=== PATIENT | female | born 1985 | race Caucasian/White ===

== ENCOUNTER 2017-04-23 10:31 | Outpatient (CLI) | payer BC ==
[~2017-04-23] VITALS: Ht 162.6 cm; Wt 85.9 kg
[~2017-04-23 10:31] MED LIST: BIRTH CONTROL PILL; PRENATAL1 TA1 PO
[2017-04-23 10:51] VITALS: BP 136/80; PULSE 79; TEMP 97.8
[2017-04-23] MEDS ORDERED: PRENATAL1 TA7 PO (11:02)
[2017-04-23 11:15] VITALS: BP 136/80; PULSE 79; TEMP 97.8
== END 2017-04-23 12:10 | disposition home or self-care (01) ==
LOC: LDRO 10:31
DX: Z34.83 Encounter for supervision of other normal pregnancy, third trimester (principal); Z3A.39 39 weeks gestation of pregnancy

== ENCOUNTER 2017-04-24 16:33 | Outpatient (CLI) | payer BC ==
[~2017-04-24] VITALS: Ht 162.6 cm; Wt 85.9 kg
[~2017-04-24 16:33] MED LIST changes: +PRENATAL1 TA7 PO
[2017-04-24 16:48] VITALS: BP 131/79; PULSE 76; TEMP 98.2
== END 2017-04-24 17:35 | disposition home or self-care (01) ==
LOC: LDRO 16:33
DX: O42.92 Full-term premature rupture of membranes, unspecified as to length of time between rupture and onset of labor (principal); Z3A.39 39 weeks gestation of pregnancy

== ENCOUNTER 2017-04-28 08:45 | Inpatient (IN) | payer BC ==
[2017-04-28] VITALS (24 sets, daily range): BP systolic 118–157; BP diastolic 60–102; PULSE 67–107; TEMP 97.3–98.3
[~2017-04-28] VITALS: Ht 162.6 cm; Wt 85.9 kg
[2017-04-28 09:48] LABS: BASO % 0.3 % (0.0-2.0); EOS # 0.1 (0.0-0.7); EOS % 1.4 % (0-4.0); GRAN # 6.7 (1.4-6.5); GRAN % 74.2 % (42.2-75.2); HEMOGLOBIN 12.2 g/dl (12.5-16.0); LYMPH # 1.5 (1.2-3.4); LYMPH % 16.4 % (20.0-51.0); MEAN CELL VOLUME 93 fl (80.0-100.0); MEAN CORPUSCULAR HEMOGLOBIN 33 pg (27.0-31.0); MEAN CORPUSCULAR HGB CONC 35 g/dl (33.0-37.0); MONO # 0.7 (0.1-0.6); MONO % 7.3 % (1.7-9.3); PLATELET COUNT 179 K/mm3 (130-400); RED BLOOD COUNT 3.72 M/mm3 (4.10-5.30); REDCELL DISTRIBUTION WIDTH-CV 13.1 % (11.5-14.5)
[2017-04-28 09:51] LABS: HEMATOCRIT 34.5 % (37.0-47.0)
[2017-04-29 02:00] VITALS: BP 127/71; PULSE 68; TEMP 97.9
[2017-04-29 07:00] VITALS: BP 124/64; PULSE 60; TEMP 98
[2017-04-29] MEDS ORDERED: MOTRIN 800800 MG/TAB PO (08:14)
[2017-04-29] MEDS ORDERED: PERCOCET 325 MG1 TA2 PO (08:15)
[2017-04-29 12:30] VITALS: BP 125/65; PULSE 66; TEMP 98
== END 2017-04-29 15:30 | disposition home or self-care (01) | DRG 775 ==
LOC: LDRO 08:45 → LDR 08:52 → OB 16:30
PROVIDERS: Obstetrics & Gynecology
PROC: 10E0XZZ Delivery of Products of Conception, External Approach (ICD-10-PCS; principal; 2017-04-28)
PROC: 0KQM0ZZ Repair Perineum Muscle, Open Approach (ICD-10-PCS; 2017-04-28)
DX: O48.0 Post-term pregnancy (principal); O70.1 Second degree perineal laceration during delivery; O13.3 Gestational [pregnancy-induced] hypertension without significant proteinuria, third trimester; Z3A.40 40 weeks gestation of pregnancy; Z37.0 Single live birth
CPT/HCPCS: J2590; J7120

== ENCOUNTER 2017-06-18 09:28 | Inpatient (IN) | payer BC ==
[~2017-06-18] VITALS: Ht 162.6 cm; Wt 67.9 kg
[~2017-06-18 09:28] MED LIST changes: +MOTRIN 800800 MG/TAB PO; +PERCOCET 325 MG1 TA2 PO
[2017-06-18] MEDS ORDERED: PREDNISONE10 MG PO (10:01)
[2017-06-18] MEDS ORDERED: HUMIRA40 MG/0.1 IM (10:02)
[2017-06-18 10:18] LABS: MEAN CELL VOLUME 90 fl (80.0-100.0); MEAN CORPUSCULAR HGB CONC 32 g/dl (33.0-37.0); MEAN PLATELET VOLUME 8.9 fl (7.4-10.4); PLATELET COUNT 339 K/mm3 (130-400); RED BLOOD COUNT 3.46 M/mm3 (4.10-5.30); REDCELL DISTRIBUTION WIDTH-CV 13.2 % (11.5-14.5); WHITE BLOOD COUNT 7.5 K/mm3 (4.8-10.8)
[2017-06-18 10:20] LABS: ADD PATHOLOGY DIFF REVIEW NO; HEMOGLOBIN 9.8 g/dl (12.5-16.0); MEAN CORPUSCULAR HEMOGLOBIN 28 pg (27.0-31.0)
[2017-06-18 10:33] LABS: ADJUSTED CALCIUM 9.6 mg/dL (8.4-10.2); ALBUMIN 3.1 gm/dL (3.5-5.0); BILIRUBIN,TOTAL 0.6 mg/dL (0.0-1.0); CALCIUM 8.9 mg/dL (8.4-10.2); CREATININE, serum 1.11 mg/dL (0.52-1.25); TOTAL PROTEIN 6.5 gm/dL (6.4-8.2)
[2017-06-18 11:40] LABS: BAND 57 % (0-10); EOSINOPHIL 3 % (0-4); NEUTROPHILS 7 % (42.0-75.2); PLATELET ESTIMATE NORMAL (NORMAL); TOTAL CELLS COUNTED 100; TOXIC GRANULATION PRESENT
[2017-06-18 11:44] LABS: ERYTHROCYTE SEDIMENTATION RATE 44 mm/hr (0-20)
[2017-06-18 13:04] LABS: PH 6 (5-8); SQUAMOUS EPITHELIAL 0-2 /hpf; URINE APPEARANCE Clear; URINE BACTERIA Rare /hpf; URINE BILIRUBIN Negative (NEGATIVE); URINE BLOOD Negative (NEGATIVE); URINE COLOR Straw; URINE GLUCOSE Negative (NEGATIVE); URINE KETONE Negative (NEGATIVE); URINE RBC 0-2 /hpf; URINE UROBILINOGEN Negative (NEGATIVE)
[2017-06-18 15:24] VITALS: BP 120/76; PULSE 75; TEMP 99.3
[2017-06-18 15:42] VITALS: BP 120/76; PULSE 67; TEMP 99.3
[2017-06-18 19:59] VITALS: BP 110/68; PULSE 60; TEMP 98.1
[2017-06-18 23:25] VITALS: BP 117/64; PULSE 48; TEMP 97.5
[2017-06-19 04:14] VITALS: BP 121/70; PULSE 54; TEMP 97.6
[2017-06-19 06:36] LABS: MEAN CELL VOLUME 89 fl (80.0-100.0); MEAN CORPUSCULAR HGB CONC 32 g/dl (33.0-37.0); MEAN PLATELET VOLUME 9.3 fl (7.4-10.4); PLATELET COUNT 319 K/mm3 (130-400); RED BLOOD COUNT 3.26 M/mm3 (4.10-5.30); REDCELL DISTRIBUTION WIDTH-CV 13.1 % (11.5-14.5)
[2017-06-19 06:45] LABS: ADD PATHOLOGY DIFF REVIEW NO; HEMATOCRIT 29.1 % (37.0-47.0); HEMOGLOBIN 9.2 g/dl (12.5-16.0); MEAN CORPUSCULAR HEMOGLOBIN 28 pg (27.0-31.0)
[2017-06-19 06:57] LABS: CALCIUM 8.4 mg/dL (8.4-10.2); CREATININE, serum 0.76 mg/dL (0.52-1.25)
[2017-06-19 07:40] LABS: BAND 65 % (0-10); METAMYELOCYTE 1 % (0-0); NEUTROPHILS 27 % (42.0-75.2); OVALOCYTES 1+; PLATELET ESTIMATE INCREASED (NORMAL); TEAR DROP CELLS 1+; TOTAL CELLS COUNTED 100
[2017-06-19 07:52] VITALS: BP 120/70; PULSE 75; TEMP 97.8
[2017-06-19 10:54] VITALS: BP 120/71; PULSE 55; TEMP 97.8
[2017-06-19 20:16] VITALS: BP 119/71; PULSE 55; TEMP 97.8
[2017-06-19 22:56] VITALS: BP 119/66; PULSE 55; TEMP 97.6
[2017-06-20 03:35] VITALS: BP 131/78; PULSE 58; TEMP 98.2
[2017-06-20 07:21] LABS: CALCIUM 9.4 mg/dL (8.4-10.2); CREATININE, serum 0.88 mg/dL (0.52-1.25); POTASSIUM 3.8 mmol/L (3.4-5.0)
[2017-06-20 09:32] VITALS: BP 131/74; PULSE 50; TEMP 98.2
[2017-06-20 15:40] VITALS: BP 126/72; PULSE 54; TEMP 98.5
[2017-06-20 20:50] VITALS: BP 131/74; PULSE 55; TEMP 98.7
[2017-06-20 23:50] VITALS: BP 138/84; PULSE 52; TEMP 97
[2017-06-21] VITALS (10 sets, daily range): BP systolic 113–150; BP diastolic 61–81; PULSE 52–90; TEMP 97.9–98.7
[2017-06-22 02:52] VITALS: BP 134/70; PULSE 56; TEMP 98.1
[2017-06-22 07:33] VITALS: BP 158/89; PULSE 50; TEMP 98.6
[2017-06-22] MEDS ORDERED: ASACOL HD800 MG PO (07:37)
[2017-06-22] MEDS ORDERED: PREDNISONE20 MG PO (07:44)
== END 2017-06-22 10:55 | disposition home or self-care (01) | DRG 387 ==
LOC: COL.ER 09:28 → MEDICAL 14:00 → COL.ER 14:00 → MEDICAL 15:15
PROVIDERS: Family Medicine; Internal Medicine Gastroenterology; Nurse Practitioner; Physician Assistant
PROC: 0DBF8ZX Excision of Right Large Intestine, Via Natural or Artificial Opening Endoscopic, Diagnostic (ICD-10-PCS; 2017-06-21)
PROC: 0DBG8ZX Excision of Left Large Intestine, Via Natural or Artificial Opening Endoscopic, Diagnostic (ICD-10-PCS; 2017-06-21)
PROC: 0DBB8ZX Excision of Ileum, Via Natural or Artificial Opening Endoscopic, Diagnostic (ICD-10-PCS; 2017-06-21)
PROC: 0DBL8ZX Excision of Transverse Colon, Via Natural or Artificial Opening Endoscopic, Diagnostic (ICD-10-PCS; 2017-06-21)
PROC: 0DBP8ZX Excision of Rectum, Via Natural or Artificial Opening Endoscopic, Diagnostic (ICD-10-PCS; principal; 2017-06-21 07:30)
DX: K50.10 Crohn's disease of large intestine without complications (principal); E87.6 Hypokalemia; M79.661 Pain in right lower leg
CPT/HCPCS: 99222-AI; 99231-AI; 99232-AI; 99239; J0360; J1170; J2270; J2405; J2550; J2704; J2765; J2930; J7030; Q9967

== ENCOUNTER → 2018-10-10 | Outpatient (CLI) | payer BC ==
[~2018-10-10] MED LIST changes: +ASACOL HD800 MG PO; +HUMIRA40 MG/0.1 IM; +PREDNISONE10 MG PO; +PREDNISONE20 MG PO
== END ==
LOC: COL.LAB 08:58
DX: K50.10 Crohn's disease of large intestine without complications (principal); Z79.899 Other long term (current) drug therapy

== ENCOUNTER 2018-11-13 09:07 | Inpatient (IN) | payer BC ==
[~2018-11-13] VITALS: Ht 162.6 cm; Wt 65.4 kg
[2018-11-13 09:49] LABS: BASO % 0.3 % (0.0-2.0); EOS % 0.2 % (0-4.0); GRAN # 5.5 (1.4-6.5); GRAN % 60.5 % (42.2-75.2); HEMATOCRIT 38.6 % (37.0-47.0); HEMOGLOBIN 12.9 g/dl (12.5-16.0); LYMPH # 2.8 (1.2-3.4); LYMPH % 30.5 % (20.0-51.0); MEAN CELL VOLUME 91 fl (80.0-100.0); MEAN CORPUSCULAR HEMOGLOBIN 30 pg (27.0-31.0); MEAN CORPUSCULAR HGB CONC 33 g/dl (33.0-37.0); MEAN PLATELET VOLUME 8.6 fl (7.4-10.4); MONO # 0.7 (0.1-0.6); PLATELET COUNT 229 K/mm3 (130-400); RED BLOOD COUNT 4.24 M/mm3 (4.10-5.30); REDCELL DISTRIBUTION WIDTH-CV 12.9 % (11.5-14.5)
[2018-11-13 09:51] LABS: COLLECTION METHOD CLEAN CATCH
[2018-11-13 09:59] LABS: ALBUMIN 3.4 gm/dL (3.5-5.0); BILIRUBIN,TOTAL 0.4 mg/dL (0.0-1.0); C-REACTIVE PROTEIN 5.6 mg/dL (0.0-0.9); CALCIUM 9.1 mg/dL (8.4-10.2); CREATININE, serum 0.86 mg/dL (0.52-1.25); POTASSIUM 3.6 mmol/L (3.4-5.0); TOTAL PROTEIN 6.5 gm/dL (6.4-8.2)
[2018-11-13 10:02] LABS: MUCOUS Present /lpf; PH 6 (5-8); SQUAMOUS EPITHELIAL 20-50 /hpf; URINE APPEARANCE Hazy; URINE BACTERIA Rare /hpf; URINE BILIRUBIN Negative (NEGATIVE); URINE BLOOD Negative (NEGATIVE); URINE COLOR Yellow; URINE GLUCOSE Negative (NEGATIVE); URINE KETONE Negative (NEGATIVE); URINE LEUKOCYTE ESTERASE 1+ (NEGATIVE); URINE NITRATE Negative (NEGATIVE); URINE PROTEIN(semi-quant) 1+ (NEGATIVE); URINE RBC 0-2 /hpf
[2018-11-13] MEDS ORDERED: PREDNISONE10 MG PO (14:27)
[2018-11-13 15:29] LABS: COLLECTION METHOD CLEAN CATCH
[2018-11-13 15:36] LABS: MUCOUS Present /lpf; PH 5 (5-8); SQUAMOUS EPITHELIAL 0-2 /hpf; URINE APPEARANCE Clear; URINE BACTERIA None Seen /hpf; URINE BILIRUBIN Negative (NEGATIVE); URINE BLOOD Negative (NEGATIVE); URINE COLOR Yellow; URINE GLUCOSE Negative (NEGATIVE); URINE KETONE Negative (NEGATIVE); URINE LEUKOCYTE ESTERASE Negative (NEGATIVE); URINE NITRATE Negative (NEGATIVE); URINE PROTEIN(semi-quant) Negative (NEGATIVE); URINE RBC 0-2 /hpf; URINE UROBILINOGEN Negative (NEGATIVE)
[2018-11-13 17:02] VITALS: BP 106/61; PULSE 61; TEMP 98.1
[2018-11-13 19:40] VITALS: BP 121/65; PULSE 70; TEMP 98.1
[2018-11-14] VITALS (11 sets, daily range): BP systolic 88–111; BP diastolic 46–77; PULSE 50–74; TEMP 97.7–98.6
[2018-11-14 07:53] LABS: BASO % 0.2 % (0.0-2.0); GRAN # 10.9 (1.4-6.5); GRAN % 83.4 % (42.2-75.2); HEMATOCRIT 38.1 % (37.0-47.0); HEMOGLOBIN 12.8 g/dl (12.5-16.0); LYMPH # 1.6 (1.2-3.4); LYMPH % 12.4 % (20.0-51.0); MEAN CELL VOLUME 91 fl (80.0-100.0); MEAN CORPUSCULAR HEMOGLOBIN 31 pg (27.0-31.0); MEAN CORPUSCULAR HGB CONC 34 g/dl (33.0-37.0); MEAN PLATELET VOLUME 8.9 fl (7.4-10.4); MONO # 0.4 (0.1-0.6); MONO % 3.1 % (1.7-9.3); PLATELET COUNT 271 K/mm3 (130-400); RED BLOOD COUNT 4.17 M/mm3 (4.10-5.30); REDCELL DISTRIBUTION WIDTH-CV 13.1 % (11.5-14.5)
[2018-11-14 08:07] LABS: CALCIUM 8.2 mg/dL (8.4-10.2); CREATININE, serum 0.65 mg/dL (0.52-1.25); POTASSIUM 4.3 mmol/L (3.4-5.0)
[2018-11-15] VITALS (7 sets, daily range): BP systolic 97–123; BP diastolic 57–77; PULSE 50–74; TEMP 97–98.7
[2018-11-15 06:03] LABS: BASO % 0.2 % (0.0-2.0); GRAN # 9.4 (1.4-6.5); GRAN % 80.3 % (42.2-75.2); HEMATOCRIT 38.8 % (37.0-47.0); HEMOGLOBIN 12.8 g/dl (12.5-16.0); LYMPH # 1.7 (1.2-3.4); LYMPH % 14.2 % (20.0-51.0); MEAN CELL VOLUME 93 fl (80.0-100.0); MEAN CORPUSCULAR HEMOGLOBIN 31 pg (27.0-31.0); MEAN CORPUSCULAR HGB CONC 33 g/dl (33.0-37.0); MEAN PLATELET VOLUME 8.9 fl (7.4-10.4); MONO # 0.5 (0.1-0.6); MONO % 4.1 % (1.7-9.3); PLATELET COUNT 263 K/mm3 (130-400); RED BLOOD COUNT 4.18 M/mm3 (4.10-5.30); REDCELL DISTRIBUTION WIDTH-CV 13.1 % (11.5-14.5)
[2018-11-15 06:17] LABS: CALCIUM 8.2 mg/dL (8.4-10.2); CREATININE, serum 0.63 mg/dL (0.52-1.25); POTASSIUM 4.3 mmol/L (3.4-5.0)
[2018-11-16 04:13] VITALS: BP 109/74; PULSE 52; TEMP 97.9
[2018-11-16 07:35] VITALS: BP 110/73; PULSE 51; TEMP 98.5
[2018-11-16 11:11] VITALS: BP 111/69; PULSE 57; TEMP 97.8
[2018-11-16 15:18] VITALS: BP 111/65; PULSE 56; TEMP 98.3
[2018-11-16 20:07] VITALS: BP 122/80; PULSE 64; TEMP 97.4
[2018-11-17 00:56] VITALS: BP 117/69; PULSE 51; TEMP 97.9
[2018-11-17 04:27] VITALS: BP 112/68; PULSE 56; TEMP 98.1
[2018-11-17 07:19] VITALS: BP 113/72; PULSE 51; TEMP 98.8
[2018-11-17] MEDS ORDERED: ASACOL HD800 MG PO (09:28)
[2018-11-17] MEDS ORDERED: ROWASA ENEMA60 ML RC (09:28)
[2018-11-17] MEDS ORDERED: BENTYL 10MG10 MG/CAP PO (09:29)
[2018-11-17] MEDS ORDERED: PREDNISONE10 MG PO (09:46)
== END 2018-11-17 12:28 | disposition home or self-care (01) | DRG 387 ==
LOC: COL.ER 09:07 → MEDICAL 09:52
PROVIDERS: Emergency Medicine; Internal Medicine Gastroenterology; Physician Assistant
PROC: 0DBF8ZX Excision of Right Large Intestine, Via Natural or Artificial Opening Endoscopic, Diagnostic (ICD-10-PCS; 2018-11-14)
PROC: 0DBG8ZX Excision of Left Large Intestine, Via Natural or Artificial Opening Endoscopic, Diagnostic (ICD-10-PCS; principal; 2018-11-14 12:00)
DX: K50.111 Crohn's disease of large intestine with rectal bleeding (principal); R11.2 Nausea with vomiting, unspecified
CPT/HCPCS: 99222-AI; 99232-AI; 99233-AI; 99239; G0378; J1170; J2405; J2550; J2704; J2765; J2930; J7030; J7512

== ENCOUNTER 2018-11-26 13:37 | Outpatient (RCR) | payer BC ==
[~2018-11-26] VITALS: Ht 162.6 cm; Wt 61.7 kg
[~2018-11-26 13:37] MED LIST changes: +BENTYL 10MG10 MG/CAP PO; +ROWASA ENEMA60 ML RC
[2018-11-26 14:05] LABS: BASO % 0.2 % (0.0-2.0); GRAN # 4.4 (1.4-6.5); GRAN % 73.8 % (42.2-75.2); HEMOGLOBIN 11.5 g/dl (12.5-16.0); LYMPH # 1.4 (1.2-3.4); LYMPH % 23.3 % (20.0-51.0); MEAN CELL VOLUME 91 fl (80.0-100.0); MEAN CORPUSCULAR HEMOGLOBIN 30 pg (27.0-31.0); MEAN CORPUSCULAR HGB CONC 34 g/dl (33.0-37.0); MEAN PLATELET VOLUME 8.5 fl (7.4-10.4); MONO # 0.1 (0.1-0.6); MONO % 2.2 % (1.7-9.3); PLATELET COUNT 235 K/mm3 (130-400); RED BLOOD COUNT 3.79 M/mm3 (4.10-5.30); REDCELL DISTRIBUTION WIDTH-CV 13.2 % (11.5-14.5)
[2018-11-26 14:06] LABS: HEMATOCRIT 34.3 % (37.0-47.0)
[2018-11-26 15:00] VITALS: BP 95/56; PULSE 77; TEMP 98.4
== END 2018-11-26 16:10 | disposition home or self-care (01) ==
LOC: EUO 13:37
PROVIDERS: Internal Medicine Gastroenterology
DX: K50.10 Crohn's disease of large intestine without complications (principal)
CPT/HCPCS: J3380; J7050

== ENCOUNTER 2018-12-11 10:10 | Outpatient (CLI) | payer BC ==
[~2018-12-11] VITALS: Ht 162.6 cm; Wt 62.6 kg
[2018-12-11 10:42] LABS: BASO % 0.2 % (0.0-2.0); EOS # 0.2 (0.0-0.7); GRAN # 4.8 (1.4-6.5); GRAN % 59.3 % (42.2-75.2); HEMOGLOBIN 11.6 g/dl (12.5-16.0); LYMPH # 2.6 (1.2-3.4); LYMPH % 32.8 % (20.0-51.0); MEAN CELL VOLUME 93 fl (80.0-100.0); MEAN CORPUSCULAR HEMOGLOBIN 30 pg (27.0-31.0); MEAN CORPUSCULAR HGB CONC 32 g/dl (33.0-37.0); MEAN PLATELET VOLUME 8.3 fl (7.4-10.4); MONO # 0.4 (0.1-0.6); MONO % 5.2 % (1.7-9.3); PLATELET COUNT 242 K/mm3 (130-400); RED BLOOD COUNT 3.88 M/mm3 (4.10-5.30); REDCELL DISTRIBUTION WIDTH-CV 14.5 % (11.5-14.5)
[2018-12-11 12:20] VITALS: BP 103/67; PULSE 86; TEMP 98.3
== END 2018-12-11 13:03 | disposition home or self-care (01) ==
LOC: EUO 10:10
PROVIDERS: Internal Medicine Gastroenterology
DX: K50.10 Crohn's disease of large intestine without complications (principal); Z79.899 Other long term (current) drug therapy
CPT/HCPCS: J3380; J7050

== ENCOUNTER 2019-01-07 09:52 | Outpatient (CLI) | payer BC ==
[~2019-01-07] VITALS: Ht 162.6 cm; Wt 62.3 kg
[2019-01-07 10:23] LABS: MEAN CELL VOLUME 91 fl (80.0-100.0); MEAN CORPUSCULAR HEMOGLOBIN 30 pg (27.0-31.0); MEAN CORPUSCULAR HGB CONC 33 g/dl (33.0-37.0); MEAN PLATELET VOLUME 8.6 fl (7.4-10.4); PLATELET COUNT 258 K/mm3 (130-400); REDCELL DISTRIBUTION WIDTH-CV 13.8 % (11.5-14.5)
[2019-01-07 10:24] LABS: HEMATOCRIT 33.6 % (37.0-47.0)
[2019-01-07 11:39] VITALS: BP 123/77; PULSE 74; TEMP 98.5
== END 2019-01-07 12:12 | disposition home or self-care (01) ==
LOC: EUO 09:52
PROVIDERS: Internal Medicine Gastroenterology
DX: K50.10 Crohn's disease of large intestine without complications (principal); Z79.899 Other long term (current) drug therapy
CPT/HCPCS: J3380; J7050

== ENCOUNTER 2019-08-01 23:05 | Inpatient (IN) | payer BC ==
[~2019-08-01] VITALS: Ht 162.6 cm; Wt 68.0 kg
[2019-08-01 23:53] LABS: BASO % 0.2 % (0.0-2.0); EOS % 0.3 % (0-4.0); GRAN # 7.5 (1.4-6.5); GRAN % 78.6 % (42.2-75.2); HEMATOCRIT 39.9 % (37.0-47.0); HEMOGLOBIN 13.2 g/dl (12.5-16.0); LYMPH # 1.6 (1.2-3.4); LYMPH % 16.5 % (20.0-51.0); MEAN CELL VOLUME 83 fl (80.0-100.0); MEAN CORPUSCULAR HEMOGLOBIN 28 pg (27.0-31.0); MEAN CORPUSCULAR HGB CONC 33 g/dl (33.0-37.0); MEAN PLATELET VOLUME 9.6 fl (7.4-10.4); MONO # 0.4 (0.1-0.6); MONO % 4.2 % (1.7-9.3); PLATELET COUNT 233 K/mm3 (130-400); REDCELL DISTRIBUTION WIDTH-CV 14.4 % (11.5-14.5)
[2019-08-02 00:01] LABS: ALANINE AMINOTRANSFERASE < 6 U/L (9-52); ALBUMIN 4.6 gm/dL (3.5-5.0); ALKALINE PHOSPHATASE 85 U/L (50-136); ANION GAP 10 mmol/L (7-16); AST,SGOT 37 U/L (15-37); BILIRUBIN,TOTAL 0.9 mg/dL (0.0-1.0); BLOOD UREA NITROGEN 15 mg/dL (7-17); C-REACTIVE PROTEIN 0.5 mg/dL (0.0-0.9); CALCIUM 9.7 mg/dL (8.4-10.2); CARBON DIOXIDE 23 mmol/L (22-30); CHLORIDE 104 mmol/L (98-107); CREATININE, serum 0.78 (0.52-1.25); GLUCOSE 97 mg/dL (74-106); LIPASE 60 U/L (23-300); POTASSIUM 3.6 mmol/L (3.4-5.0); SODIUM 137 mmol/L (137-145); TOTAL PROTEIN 7.6 gm/dL (6.4-8.2)
[2019-08-02 01:29] LABS: COLLECTION METHOD CLEAN CATCH
[2019-08-02 01:37] LABS: MUCOUS Present /lpf; PH 5 (5-8); URINE APPEARANCE Clear; URINE BACTERIA None Seen /hpf; URINE BILIRUBIN Negative (NEGATIVE); URINE BLOOD Negative (NEGATIVE); URINE COLOR Yellow; URINE GLUCOSE Negative (NEGATIVE); URINE KETONE 1+ (NEGATIVE); URINE LEUKOCYTE ESTERASE Negative (NEGATIVE); URINE NITRATE Negative (NEGATIVE); URINE PROTEIN(semi-quant) Negative (NEGATIVE); URINE RBC 0-2 /hpf; URINE UROBILINOGEN Negative (NEGATIVE)
[2019-08-02 01:44] VITALS: BP 116/60; PULSE 76; TEMP 98.4
[2019-08-02 04:00] VITALS: BP 91/53; PULSE 50; TEMP 98.5
[2019-08-02 05:59] LABS: BASO % 0.4 % (0.0-2.0); GRAN # 3.4 (1.4-6.5); GRAN % 60.9 % (42.2-75.2); HEMOGLOBIN 11.6 g/dl (12.5-16.0); LYMPH # 1.8 (1.2-3.4); LYMPH % 32.9 % (20.0-51.0); MEAN CELL VOLUME 84 fl (80.0-100.0); MEAN CORPUSCULAR HEMOGLOBIN 28 pg (27.0-31.0); MEAN CORPUSCULAR HGB CONC 33 g/dl (33.0-37.0); MEAN PLATELET VOLUME 9.9 fl (7.4-10.4); MONO # 0.3 (0.1-0.6); MONO % 5.6 % (1.7-9.3); PLATELET COUNT 194 K/mm3 (130-400); RED BLOOD COUNT 4.14 M/mm3 (4.10-5.30); REDCELL DISTRIBUTION WIDTH-CV 14.4 % (11.5-14.5)
--- NOTE | 2019-08-02 06:06 | NUR ---
Has c/o pain to mid abdomen around navel-sharp intermittent-rating 10/10. Morphine 2mg given at 0410-another 2mg given at [address] order. States Morphine rarely works when she is having a "crohns flare." Discussed alternatives and agreed to wait 30 minutes to see if relief and if not will contact provider. Did have nausea x1 as well this shift. Zofran given per dr order. Will monitor effectiveness of last morphine dose.
[2019-08-02 06:07] LABS: HEMATOCRIT 34.9 % (37.0-47.0)
[2019-08-02 06:10] LABS: ALBUMIN 3.7 gm/dL (3.5-5.0); BILIRUBIN,TOTAL 0.6 mg/dL (0.0-1.0); CALCIUM 8.5 mg/dL (8.4-10.2); CREATININE, serum 0.74 (0.52-1.25); POTASSIUM 4.3 mmol/L (3.4-5.0); TOTAL PROTEIN 6.2 gm/dL (6.4-8.2)
[2019-08-02 09:18] VITALS: BP 102/66; PULSE 50; TEMP 98
--- NOTE | 2019-08-02 10:00 | NUR ---
Patient laying in bed upon shift assessment. Continues to have abdominal pain at 7-10/10. Dilaudid helps bring the pain down to about a 7. Patient states the pain comes in waves and is a localized tightening/cramping sensation. Patient has a small amout of output to illeostomy bag and states she has been having some air bubbles/gas/gurgling as well. Small episodes of nausea that come and go. No vomiting so far this shift. Moist mouth sponges offered as patient is NPO but states her mouth is getting dry. Patient will continue to rest. Call light in reach.
[2019-08-02 13:54] VITALS: BP 106/62; PULSE 59; TEMP 98.1
--- NOTE | 2019-08-02 17:27 | NUR ---
Patient continues to have nausea and had an episode of vomiting around 1644. Dr. Odom notified. Orders received for IV phenergan and to place a nasogastric tube to low intermittent suction.
[2019-08-02 17:43] VITALS: BP 110/70; PULSE 98; TEMP 98.8
--- NOTE | 2019-08-02 18:03 | NUR ---
NG tube placed by DYLAN Cespedes. Tube placed on first try without difficulty. Patient tolerated procedure remarkably well.
[2019-08-02 19:50] VITALS: BP 127/80; PULSE 79; TEMP 98.4
--- NOTE | 2019-08-02 20:45 | NUR ---
Patient resting in bed, NGT to LIS with scant drainage in tubing noted. Has IVF to right AC without redness or swelling. Has hypoactive bowel sounds, tinkling. Has small amount of liquid in her Ileostomy bag. Assisted to bathroom where she voids and empties her ostomy bag. When back in bed, reports pain to abdomen 10/10.
--- NOTE | 2019-08-02 21:00 | NUR ---
Medicated with Dilaudid 0.5mg IV at this time. Patients mother is at bedside. Placement of NGT confirmed with air bolus.
[2019-08-03] VITALS (7 sets, daily range): BP systolic 102–129; BP diastolic 51–74; PULSE 71–87; TEMP 98–98.9
--- NOTE | 2019-08-03 04:00 | NUR ---
Patient up to bathroom, more output in Ileostomy bag and emptied by patient. Denies need for pain meds at this time.
--- NOTE | 2019-08-03 06:00 | NUR ---
Total NG output 300cc.
[2019-08-03 06:48] LABS: BASO % 0.2 % (0.0-2.0); EOS % 0.2 % (0-4.0); GRAN # 4.2 (1.4-6.5); GRAN % 64.7 % (42.2-75.2); HEMOGLOBIN 11.9 g/dl (12.5-16.0); LYMPH # 1.8 (1.2-3.4); LYMPH % 27.3 % (20.0-51.0); MEAN CELL VOLUME 86 fl (80.0-100.0); MEAN CORPUSCULAR HEMOGLOBIN 28 pg (27.0-31.0); MEAN CORPUSCULAR HGB CONC 32 g/dl (33.0-37.0); MEAN PLATELET VOLUME 9.9 fl (7.4-10.4); MONO # 0.5 (0.1-0.6); MONO % 7.4 % (1.7-9.3); PLATELET COUNT 206 K/mm3 (130-400); RED BLOOD COUNT 4.25 M/mm3 (4.10-5.30); REDCELL DISTRIBUTION WIDTH-CV 14.6 % (11.5-14.5)
[2019-08-03 06:54] LABS: ALBUMIN 3.4 gm/dL (3.5-5.0); BILIRUBIN,TOTAL 0.8 mg/dL (0.0-1.0); C-REACTIVE PROTEIN 3.2 mg/dL (0.0-0.9); CALCIUM 8.5 mg/dL (8.4-10.2); CREATININE, serum 0.68 (0.52-1.25); POTASSIUM 3.9 mmol/L (3.4-5.0); TOTAL PROTEIN 5.9 gm/dL (6.4-8.2)
[2019-08-03 07:00] LABS: HEMATOCRIT 36.7 % (37.0-47.0)
--- NOTE | 2019-08-03 11:50 | NUR ---
Patients NG tube was clamped and she had clear liquids this am. She is tolerating them so far. She is going slow. NG tube has been discontinued as ordered by Dr Odom. Patient has been withouth pain and nausea this morning. Her mother is bedside. She is having good output from her ileostomy. No other changes at this time. Call light within reach.
--- NOTE | 2019-08-03 13:30 | NUR ---
Patient started to have severe cramping and pain again to her lower abdomen. Notified Dr Odom. He ordered percocet for the patient to try because the dilauded did not seem to work as well before. Patient denies nausea at this time. Percocet given for pain. No other changes at this time. Call light within reach.
[2019-08-03 17:14] LABS: IRON,SERUM 60 ug/dL (35-150)
[2019-08-03 17:24] LABS: TOTAL IRON BINDING CAPACITY 342 ug/dL (265-497)
[2019-08-03 17:51] LABS: FERRITIN 27 ng/mL (6-137)
--- NOTE | 2019-08-03 18:00 | NUR ---
Patient has been getting dilauded for pain. Dr Brambila has been consulted and seent he patient. She ordered a scan for tomorrow. Patient continues to deny nausea. There has been talk of possibly placing the NG again if her nausea returns. Patient is aware of this being a possibility. No other changes at this time. Call light within reach.
--- NOTE | 2019-08-03 19:30 | NUR ---
Patient in bed, awake. at bedside. Patient c/o 9/10 pain in abdomen. Denies nausea. Prn pain medication given per pt request. 2-piece ostomy intact, output brown/mushy per pt report. Will continue to monitor. Denies further needs.
--- NOTE | 2019-08-03 23:10 | NUR ---
Patient in bed, awake. States pain 6/10 and is tolerable. at bedside. Discussed with patient restarting IVF since she is NPO after [place]. Patient decided not to restart IVF. Will continue to monitor.
[2019-08-04] VITALS (7 sets, daily range): BP systolic 95–127; BP diastolic 50–77; PULSE 63–70; TEMP 98.3–99
--- NOTE | 2019-08-04 | NUR ---
BP 95/50. Patient has been sleeping and had recieved dose of pain meds about an hour ago. Patient not symptomatic. Will recheck prior to next dose of pain medication.
--- NOTE | 2019-08-04 04:27 | NUR ---
Patient in bed, awake. Denies pain. Denies further needs at this time. Will continue to monitor.
[2019-08-04 08:11] LABS: BASO % 0.4 % (0.0-2.0); EOS % 0.6 % (0-4.0); GRAN # 3.2 (1.4-6.5); GRAN % 62.7 % (42.2-75.2); HEMOGLOBIN 11.8 g/dl (12.5-16.0); LYMPH # 1.5 (1.2-3.4); LYMPH % 28.9 % (20.0-51.0); MEAN CORPUSCULAR HEMOGLOBIN 28 pg (27.0-31.0); MEAN CORPUSCULAR HGB CONC 33 g/dl (33.0-37.0); MEAN PLATELET VOLUME 9.5 fl (7.4-10.4); MONO # 0.4 (0.1-0.6); PLATELET COUNT 190 K/mm3 (130-400); RED BLOOD COUNT 4.27 M/mm3 (4.10-5.30); REDCELL DISTRIBUTION WIDTH-CV 14.1 % (11.5-14.5)
[2019-08-04 08:12] LABS: MEAN CELL VOLUME 84 fl (80.0-100.0)
[2019-08-04 08:22] LABS: ALBUMIN 3.7 gm/dL (3.5-5.0); BILIRUBIN,TOTAL 0.9 mg/dL (0.0-1.0); CALCIUM 9.2 mg/dL (8.4-10.2); CREATININE, serum 0.67 (0.52-1.25); POTASSIUM 3.8 mmol/L (3.4-5.0); TOTAL PROTEIN 6.4 gm/dL (6.4-8.2)
--- NOTE | 2019-08-04 09:53 | NUR ---
Patient alert and oriented, answers questions appropriately. See assessment. Abdomen soft, non tender, non distended. +Flatus and stool in colostomy bag. Bowel sounds hyperactive x4 quads. No c/o pain or discomfort at this time.
--- NOTE | 2019-08-04 10:34 | NUR ---
DANA met with the patient to discuss discharge plan. The patient lives in [place] with her , Ephraim (ph#[phone]). She reports independence with ADLs and does not have any DME. The patient's PCP is Dr. Sanna Hernandez and she receives her medications at [facility]. She reports no difficulties obtaining her meds. The patient plans to return home with her upon discharge. No additional needs at this time.
--- NOTE | 2019-08-05 02:54 | NUR ---
PATIENT IN BED. HAD DILAUDID ONCE THROUGHOUT THE NIGHT, PATIENT PREFERRED DILAUDID OVER PERCOCET. INT R FOREARM PATENT. ILEOSTOMY DRAINING. NO COMPLAINTS. WILL CONTINUE TO MONITOR.
[2019-08-05 04:25] VITALS: BP 107/65; PULSE 57; TEMP 97.9
--- NOTE | 2019-08-05 08:00 | NUR ---
PATIENT AMBULATING IN HALLWAYS THIS MORNING. PATIENT IS A&OX4. VSS. BOWEL SOUNDS ACTIVE ALL FOUR QUADRANTS. PATIENT TOLERATING FULL LIQUIDS WITHOUT ANY COMPLAINTS OF N/V. [facility]AG AND WAFER IN PLACE AND ARE CD&I. FAMILY PRESENT AT THE BEDSIDE. RIGHT FOREARM TO INT. CALL LIGHT WITHIN REACH. PATIENT DENIES ANY OTHER NEEDS AT THIS TIME.
[2019-08-05 08:23] VITALS: BP 105/67; PULSE 62; TEMP 98.3
[2019-08-05 09:44] LABS: BASO % 0.2 % (0.0-2.0); GRAN # 2.7 (1.4-6.5); GRAN % 62.2 % (42.2-75.2); HEMOGLOBIN 11.7 g/dl (12.5-16.0); LYMPH # 1.3 (1.2-3.4); LYMPH % 29.8 % (20.0-51.0); MEAN CELL VOLUME 82 fl (80.0-100.0); MEAN CORPUSCULAR HEMOGLOBIN 28 pg (27.0-31.0); MEAN CORPUSCULAR HGB CONC 34 g/dl (33.0-37.0); MEAN PLATELET VOLUME 10.4 fl (7.4-10.4); MONO # 0.3 (0.1-0.6); MONO % 7.6 % (1.7-9.3); PLATELET COUNT 234 K/mm3 (130-400); RED BLOOD COUNT 4.22 M/mm3 (4.10-5.30); REDCELL DISTRIBUTION WIDTH-CV 13.7 % (11.5-14.5)
[2019-08-05 10:02] LABS: HEMATOCRIT 34.7 % (37.0-47.0)
[2019-08-05 11:30] LABS: C-REACTIVE PROTEIN 1.7 mg/dL (0.0-0.9); CALCIUM 9.3 mg/dL (8.4-10.2); CREATININE, serum 0.6 (0.52-1.25); POTASSIUM 4.1 mmol/L (3.4-5.0)
[2019-08-05 11:40] VITALS: BP 113/71; PULSE 63; TEMP 98.1
--- NOTE | 2019-08-05 14:26 | NUR ---
PATIENT TOLERATING A LOW FIBER DIET WITHOUT ANY COMPLAINTS OF NAUSEA, VOMITING OR PAIN. WILL CONTINUE TO MONITOR.
[2019-08-05 15:55] LABS: HEPATITIS B CORE AB,TOTAL Negative (()); HEPATITIS B SURFACE ANTIGEN Negative (Negative); HEPATITIS C VIRUS ANTIBODY Negative (Negative)
[2019-08-05 17:07] VITALS: BP 99/67; PULSE 68; TEMP 98.3
--- NOTE | 2019-08-05 18:52 | NUR ---
REPORT GIVEN TO DYLAN LEVINE.
[2019-08-05 20:10] VITALS: BP 115/69; PULSE 64; TEMP 98.5
[2019-08-05 23:11] LABS: HEPATITIS B SURFACE ANTIBODY 8.8 (())
[2019-08-06 00:21] VITALS: BP 103/63; PULSE 71; TEMP 98.3
--- NOTE | 2019-08-06 00:22 | NUR ---
PATIENT HAS HAD NO COMPLAINTS OR REQUESTS TONIGHT. IN BED SLEEPING. DENIES PAIN OR NEED FOR PAIN MEDICATION. IS AT BEDSIDE. MINIMAL DRAINAGE FROM STOMA SITE NOTED. WILL CONTINUE TO MONITOR.
[2019-08-06 03:12] VITALS: BP 119/78; PULSE 71; TEMP 98.2
[2019-08-06 07:19] VITALS: BP 127/80; PULSE 63; TEMP 98.1
--- NOTE | 2019-08-06 08:00 | NUR ---
PATIENT AMBULATING IN HALLWAYS THIS MORNING. PATIENT IS A&OX4. BRADYCARDIA NOTED, VSS. BOWEL SOUNDS ACTIVE ALL FOUR QUADRANTS. PATIENT TOLERATING LOW FIBER DIET WITHOUT ANY COMPLAINTS OF N/V. ILEOSTOMY TO [facility] WITH BAG AND WAFER IN PLACE AND ARE CLEAN, DRY AND PARTIALLY INTACT. PATIENT REFUSED OSTOMY WAFER CHANGE. PATIENT WOULD LIKE TO DO THIS AT HOME AFTER DISCHARGE. STOMA RED, ROUND, PROTRUDING AND SLIGHTLY EDEMATOUS. PATIENT PASSING GAS AND STOOL. PRESENT AT THE BEDSIDE. RIGHT FOREARM TO INT. CALL LIGHT WITHIN REACH. PATIENT DENIES ANY OTHER NEEDS AT THIS TIME.
--- NOTE | 2019-08-06 10:40 | NUR ---
PATIENTS RIGHT AC LEAKING. INT DISCONTINUED. NOTIFIED. ORDER GIVEN TO HOLD IV DOSE OF SOLUMEDROL AT THIS TIME.
[2019-08-06 11:20] VITALS: BP 113/60; PULSE 60; TEMP 98.2
--- NOTE | 2019-08-06 13:15 | NUR ---
DISCHARGE INSTRUCTIONS REVIEWED WITH PATIENT AND . ALL QUESTIONS ANSWERED. PATIENT PERSONAL BELONGINGS GATHERED. PATIENT AMBULATED TO PERSONAL VEHICLE WITH SURGICAL STAFF. PATIENT DISCHARGED.
[2019-08-07 05:49] LABS: TB GOLD INTERPRETATION Negative (Negative)
== END 2019-08-06 13:15 | disposition home or self-care (01) | DRG 390 ==
LOC: COL.ER 23:05 → SURG 08-02 00:56
PROVIDERS: Emergency Medicine; Internal Medicine Gastroenterology; ADMIT Surgery
DX: K56.600 Partial intestinal obstruction, unspecified as to cause (principal); D64.9 Anemia, unspecified; K76.9 Liver disease, unspecified; Z93.2 Ileostomy status
CPT/HCPCS: A9284; J1170; J1650; J2270; J2405; J2550; J2920; J7030; Q9967

== ENCOUNTER 2019-08-10 08:46 | Day surgery (SDC) | payer BC ==
[~2019-08-10] VITALS: Ht 162.6 cm; Wt 60.5 kg
[2019-08-10] MEDS ORDERED: ENTOCORT EC3 MG PO (09:17)
[2019-08-10 09:19] VITALS: BP 117/83; PULSE 68; TEMP 98.5
[2019-08-10 10:45] VITALS: BP 127/79; PULSE 67; TEMP 98.3
[2019-08-10 11:00] VITALS: BP 103/75; PULSE 55
[2019-08-10 11:15] VITALS: BP 95/73; PULSE 55
[2019-08-10 11:30] VITALS: BP 121/69; PULSE 55
[2019-08-10 12:12] VITALS: BP 110/70; PULSE 53
--- NOTE | 2019-08-10 14:51 | NUR ---
PT RETURNED FROM ENDO SUITE INTO BAY 5. PT A/OX3, LUNGS CLEAR, BOWEL SOUNDS PRESENT, VSS. PT DENIES NAUSEA AND VOMITING OR PAIN. WILL CONT TO MONITOR PROGRESS.
--- NOTE | 2019-08-10 14:58 | NUR ---
PT TOLERATING FOOD AND FLUIDS. DENIES PAIN AND NAUSEA. WILL MONITOR
--- NOTE | 2019-08-10 15:03 | NUR ---
PT ALERT ORIENTATED, DENIES PAIN AND NAUSEA. DISCHARGE INSTRUCTIONS GIVEN, PT VOICES UNDERSTANDING. IV DC'D TO RIGHT WRIST. TOLERATED WELL. WITH HER. PT AMBULATED OUT OF HOSPITAL INTO FAMILY VEHICLE.
== END 2019-08-10 15:11 | disposition home or self-care (01) ==
LOC: SDCO 08:46
DX: K50.90 Crohn's disease, unspecified, without complications (principal); Z93.2 Ileostomy status; Z90.49 Acquired absence of other specified parts of digestive tract; Z79.899 Other long term (current) drug therapy; R10.9 Unspecified abdominal pain; G89.29 Other chronic pain; M54.9 Dorsalgia, unspecified; F32.9 Major depressive disorder, single episode, unspecified; R20.0 Anesthesia of skin; K52.9 Noninfective gastroenteritis and colitis, unspecified
CPT/HCPCS: J2250; J3010; J7030